=== PATIENT | female | born 1970 | race Caucasian/White ===

== ENCOUNTER 2020-12-19 17:45 | Emergency (ER) | payer SELFPAY ==
[~2020-12-19] VITALS: Ht 160 cm; Wt 64.0 kg
[2020-12-19] MEDS ORDERED: ACETAMINOPHEN 325MG TABLET PO ONE (18:45)
[2020-12-19 19:52] LABS: BASOPHILS % 0.2 % (0.0-2.0); EOSINOPHILS % 0.2 % (0.0-5.0); HEMATOCRIT. 39.2 % (36.0-48.0); LYMPHOCYTES % 8.5 % (20.0-50.0); MEAN CORPUSCULAR HEMOGLOBIN 25.5 pg (28.0-32.0); MEAN CORPUSCULAR VOLUME 76.7 fL (81.0-99.0); MONOCYTES % 5.3 % (2.0-8.0); NEUTROPHILS % 85.8 % (40.0-76.0); PLATELET 226 x1000/uL (130-400); RED BLOOD CELL COUNT 5.11 mill/uL (4.2-5.4)
[2020-12-19 20:05] LABS: PROTHROMBIN TIME 11.1 sec (9.6-11.0)
[2020-12-19 20:06] LABS: CHLORIDE 108 mEq/L (98-107)
[2020-12-19 20:08] LABS: HCG SCREEN NEGATIVE
[2020-12-19] MEDS ORDERED: IOHEXOL-300 100 ML BOTTLE ONE (22:33)
[2020-12-19] MEDS ORDERED: IBUP-2029 MT (22:58)
[2020-12-19] MEDS ORDERED: KETOROLAC 30MG/ML VIAL IV ONE (23:00)
[2020-12-19] MEDS ORDERED: HYDROCODONE/ACETAMINOPHEN 5/325MG TABLET PO ONE (23:00)
[2020-12-19 23:16] VITALS: BP 119/76
== END 2020-12-20 00:27 | disposition home or self-care (01) ==
LOC: ER 17:45
DX: S40.212A Abrasion of left shoulder, initial encounter (principal); V49.49XA Driver injured in collision with other motor vehicles in traffic accident, initial encounter; Y93.89 Activity, other specified; Y92.89 Other specified places as the place of occurrence of the external cause; Y99.8 Other external cause status; M54.5 Low back pain
CPT/HCPCS: 36415; 71260; 74177; 80053; 83690; 84484; 84703; 85025; 85610; 93005; 96374; 99285; J1885; Q9967

== ENCOUNTER 2020-12-20 00:48 | Emergency (ER) | payer SELFPAY ==
[~2020-12-20] VITALS: Ht 167.6 cm; Wt 78.0 kg
[~2020-12-20 00:48] MED LIST: IBUP-2029 MT
[2020-12-20 01:02] VITALS: BP 122/83
== END 2020-12-20 02:30 | disposition left against medical advice (07) ==
LOC: ER 00:48
DX: S80.01XA Contusion of right knee, initial encounter (principal); V89.2XXA Person injured in unspecified motor-vehicle accident, traffic, initial encounter; Y93.89 Activity, other specified; Y92.89 Other specified places as the place of occurrence of the external cause; Y99.8 Other external cause status
CPT/HCPCS: 99281

== ENCOUNTER 2023-06-15 11:03 | Emergency (ER) | payer MEDICAID ==
[~2023-06-15] VITALS: Ht 167.6 cm; Wt 78.0 kg
[2023-06-15 11:18] VITALS: BP 131/89; O2SAT 99
[2023-06-15] MEDS ORDERED: IBUP-2029 MT (11:36)
[2023-06-15 13:01] VITALS: PULSE 85; RESP 16; TEMP 98.5
== END 2023-06-15 13:02 | disposition home or self-care (01) ==
LOC: ER 11:45
DX: S80.01XA Contusion of right knee, initial encounter (principal); W22.8XXA Striking against or struck by other objects, initial encounter; Y93.89 Activity, other specified; Y92.89 Other specified places as the place of occurrence of the external cause; Y99.8 Other external cause status
CPT/HCPCS: 73560; 99283